=== PATIENT | male | born 1995 | race American Indian/Alaskan Native ===

== ENCOUNTER 2018-03-11 10:52 | Emergency (ER) | payer SELFPAY ==
[2018-03-11] MEDS ORDERED: NS 500 ML IV ONE (10:59)
--- NOTE | 2018-03-11 11:02 | EDPHY ---
H & P Time Seen by Provider: 03/11/18 10:55 HPI/ROS: CHIEF COMPLAINT: Shortness of breath HISTORY OF PRESENT ILLNESS: The patient is a 22-year-old healthy man with no significant past medical history. He reports sitting at his desk about an hour ago when he suddenly felt chest tightness and shortness of breath. When paramedics arrived he was tachycardic and breathing about 80 per minute wheezing inspiratory and expiratory in saturating 86%. They gave him a DuoNeb in his symptoms improved. He is no longer tachycardic and is saturating 93% on room air and is not wheezing or stridorous. He states that nothing like this has ever happened before. No cardiac or pulmonary history. No recent travel. No tearing or ripping pain. No reported history of anxiety. Severity: Severe Modifying factors: Improved with albuterol REVIEW OF SYSTEMS: Constitutional: denies: chills, fever, recent illness, recent injury EENTM: denies: blurred vision, double vision, nose congestion Respiratory: denies: cough, shortness of breath Cardiac: denies: chest pain, irregular heart rate, lightheadedness, palpitations Gastrointestinal/Abdominal: denies: abdominal pain, diarrhea, nausea, vomiting, blood streaked stools Genitourinary: denies: dysuria, frequency, hematuria, pain Musculoskeletal: denies: joint pain, muscle pain Skin: denies: lesions, rash, jaundice, bruising Neurological: denies: headache, numbness, paresthesia, tingling, dizziness, weakness Hematologic/Lymphatic: denies: blood clots, easy bleeding, easy bruising Immunologic/allergic: denies: HIV/AIDS, transplant 10 systems reviewed and negative except as noted EXAM: GENERAL: moderate distress. HEAD: Atraumatic, normocephalic. EYES: Pupils equal round and reactive to light, extraocular movements intact, sclera anicteric, conjunctiva are normal. ENT: TMs normal, nares patent, oropharynx clear without exudates. Moist mucous membranes. NECK: Normal range of motion, supple without lymphadenopathy or JVD. LUNGS: Breath sounds clear to auscultation bilaterally and equal. No wheezes rales or rhonchi. HEART: Regular rate and rhythm without murmurs, rubs or gallops. ABDOMEN: Soft, nontender, normoactive bowel sounds. No guarding, no rebound. No masses appreciated. BACK: No CVA tenderness, no spinal tenderness, step-offs or deformities EXTREMITIES: Normal range of motion, no pitting or edema. No clubbing or cyanosis. NEUROLOGICAL: Cranial nerves II through XII grossly intact. Normal speech, normal gait. 5/5 strength, normal movement in all extremities, normal sensation , normal reflexes PSYCH: Normal mood, normal affect. SKIN: Warm, dry, normal turgor, no visible rashes or lesions. Source: Patient Exam Limitations: No limitations - Medical/Surgical History Hx Asthma: No Hx Chronic Respiratory Disease: No Hx Diabetes: No Hx Cardiac Disease: No Hx Renal Disease: No Hx Cirrhosis: No Hx Alcoholism: No Hx HIV/AIDS: No - Family History Significant Family History: No pertinent family hx - Social History Smoking Status: Never smoked Alcohol Use: Sober Drug Use: None Constitutional: Initial Vital Signs Temperature (C) 37 C 03/11/18 10:58 Heart Rate 95 03/11/18 10:58 Respiratory Rate 18 03/11/18 10:58 Blood Pressure 139/81 H 03/11/18 10:58 O2 Sat (%) 96 03/11/18 10:58 O2 Delivery Mode Room Air Allergies/Adverse Reactions: unk med for od Allergy (Uncoded 03/11/18 11:06) Home Medications: Medication Instructions Recorded NK [No Known Home Meds] 03/11/18 Medical Decision Making - Diagnostics EKG Interpretation: An EKG obtained and was read and documented in trace view. Please see trace view for full reading and report. Sinus rhythm, no acute ischemic changes Imaging: Discussed imaging studies w/ call center consultant Radiologist ED Course/Re-evaluation: 7:40 a.m. patient is doing well. Stable vital signs. Saturating 99% on room air. no wheezing. Negative lab workup. Normal appearing chest x-ray. We discussed possible causes for his symptoms today. We did discussed anxiety and panic attacks which this may be. He appeared to be hyperventilating and improved with albuterol and calming techniques. He may have been wheezy because of the rapidity of his breathing. I told him we do not know exactly but that is reassuring he now feels so well. I would prefer to observe him a little longer. 12:30 p.m. The patient continues to do well. Is he is saturating 94% while asleep. He is having no symptoms. He suspects that this may have been an anxiety attack and I agree. We discussed indications for returning. Differential Diagnosis: Partial list of the Differential diagnosis considered include but were not limited to; asthma exacerbation, anxiety attack, foreign body, bronchitis and although unlikely based on the history and physical exam, I also considered pneumonia, sepsis, PE, acute coronary disease. I discussed these differential diagnoses and the plan with the patient as well as the usual and expected course. The patient understands that the diagnosis is provisional and that in medicine we are not always correct and that further workup is often warranted. Usual and customary warnings were given. All of the patient's questions were answered. The patient was instructed to return to the emergency department should the symptoms at all worsen or return, otherwise to followup with the physician as we discussed. - Data Points Laboratory Results: Laboratory Results 03/11/18 10:22 03/11/18 10:22 Medications Given: Discontinued Medications Sodium Chloride (Ns) 500 mls @ 1,000 mls/hr IV EDNOW ONE PRN Reason: Protocol Stop: 03/11/18 11:28 Last Admin: 03/11/18 11:21 Dose: 500 mls Point of Care Test Results: Chemistry 03/11/18 11:13 POC Troponin I 0.00 ng/mL ng/mL (0.00-0.08) Departure - Departure Disposition: Home, Routine, Self-Care Clinical Impression: Dyspnea Qualifiers: Dyspnea type: unspecified Qualified Code(s): R06.00 - Dyspnea, unspecified Condition: Fair Instructions: Dyspnea (ED) Referrals: Patient,NotPresent [Unknown] - As per Instructions Rafa Madden MD [Medical Doctor] - 2-3 days, if not improved Stand Alone Forms: Work Excuse
[2018-03-11 11:20] LABS: PLATELET COUNT 244 10^3/uL (150-400)
--- NOTE | 2018-03-11 11:40 | CPEKG ---
Test Reason : OPEN Blood Pressure : / mmHG Vent. Rate : 086 BPM Atrial Rate : 086 BPM P-R Int : 133 ms QRS Dur : 093 ms QT Int : 369 ms P-R-T Axes : 022 031 029 degrees QTc Int : 442 ms Sinus rhythm Confirmed by Celestine Vaughan ([id number]) on 03/11/2018 11:40:05 AM Referred By: Confirmed By:Celestine Vaughan
[2018-03-11 12:47] VITALS: BP 136/87
--- NOTE | 2018-03-11 17:57 | CPEKG ---
Test Reason : OPEN Blood Pressure : / mmHG Vent. Rate : 086 BPM Atrial Rate : 086 BPM P-R Int : 133 ms QRS Dur : 093 ms QT Int : 369 ms P-R-T Axes : 022 031 029 degrees QTc Int : 442 ms Sinus rhythm Confirmed by Enoch Woodard ([id number]) on 03/11/2018 5:56:51 PM Referred By: Confirmed By:Enoch Woodard
== END 2018-03-11 12:53 | disposition home or self-care (01) ==
DX: R06.00 Dyspnea, unspecified (principal)
CPT/HCPCS: 84484-PO